=== PATIENT | male | born 1975 | race Caucasian/White ===

== ENCOUNTER 2021-05-26 13:44 | Emergency (ER) | payer OTHER ==
[2021-05-26 14:02] VITALS: BP 162/99; PULSE 73; TEMP 97.9; BMI 31.7
[2021-05-26] MEDS ORDERED: DIPHTH,PERTUSS(ACELL),TET 0.5 ML DISP.SYRIN IM ONE ×2 (15:03→15:05)
== END 2021-05-26 15:21 | disposition home or self-care (01) ==
LOC: JERFT 13:44
PROC: 3E0234Z Introduction of Serum, Toxoid and Vaccine into Muscle, Percutaneous Approach (ICD-10-PCS; principal; 2021-05-26)
PROC: 0HQGXZZ Repair Left Hand Skin, External Approach (ICD-10-PCS; 2021-05-26)
DX: S61.512A Laceration without foreign body of left wrist, initial encounter (principal); W26.8XXA Contact with other sharp object(s), not elsewhere classified, initial encounter
CPT/HCPCS: 12002-25; 90471; 90715; 99284-25

== ENCOUNTER 2021-06-03 12:28 | Emergency (ER) | payer OTHER ==
[2021-06-03 12:41] VITALS: BP 137/78; PULSE 98; TEMP 98.7; BMI 28.5
== END 2021-06-03 13:29 | disposition home or self-care (01) ==
LOC: JERFT 12:28 → JER 12:28 → JERFT 13:29
DX: Z48.02 Encounter for removal of sutures (principal)
CPT/HCPCS: 99281-25

== ENCOUNTER 2023-08-22 08:23 | Emergency (ER) | payer OTHER ==
[2023-08-22 08:29] VITALS: BP 149/81; PULSE 107; RESP 18; TEMP 97.8; BMI 33.3
[2023-08-22] MEDS: SODIUM CHLORIDE 0.9% 1000 ML INFUS.BAG IV ONE (10:05)
[2023-08-22 10:13] LABS: BASO % 0.4 % (0-2.0); EOS % 0.2 % (0-4.5); HEMATOCRIT 42.6 % (35.4-49); HEMOGLOBIN 14.9 GM/dL (11.7-16.9); LYMPH % 22.7 % (8-40); MCH 33.6 pg (25.7-33.7); MCHC 34.9 g/dl (32.0-35.9); MEAN CELL VOLUME 96.5 fl (80-96); MEAN PLT VOLUME 7.5 fl (7.5-11.1); MONO % 5.7 % (3.8-10.2); PLATELET COUNT 190 10^3/uL (134-434); RBC 4.42 M/mm3 (4.00-5.60); RDW 13.1 % (11.9-15.9); WHITE BLOOD COUNT 5.9 K/mm3 (4.0-10.0)
[2023-08-22 10:17] LABS: PH,URINE 8.5 (5.0-8.0); URINE APPEARANCE CLEAR; URINE BILIRUBIN NEGATIVE (NEGATIVE); URINE COLOR YELLOW; URINE GLUCOSE (UA) NEGATIVE (NEGATIVE); URINE KETONE NEGATIVE (NEGATIVE); URINE LEUK ESTERASE NEGATIVE (NEGATIVE); URINE NITRITE NEGATIVE (NEGATIVE); URINE PROTEIN NEGATIVE (NEGATIVE); URINE UROBILINOGEN 0.2 mg/dL (0.2-1.0)
[2023-08-22 10:29] LABS: POTASSIUM 3.9 mmol/L (3.5-5.1)
[2023-08-22 10:31] LABS: CALCIUM 8.7 mg/dL (8.5-10.1)
[2023-08-22 10:32] LABS: ALBUMIN 4.1 g/dl (3.4-5.0); BLOOD UREA NITROGEN 11.1 mg/dL (7-18)
[2023-08-22 10:35] LABS: CREATININE 0.9 mg/dL (0.55-1.3)
[2023-08-22 10:37] LABS: BILIRUBIN,TOTAL 0.4 mg/dL (0.2-1); TOT PROT 7.1 g/dl (6.4-8.2)
[2023-08-22] MEDS ORDERED: ACETAMINOPHEN 325 MG TABLET (FP) ONE (10:58)
[2023-08-22] MEDS: ACETAMINOPHEN 500 MG TABLET (FP) PO ONE (11:02)
== END 2023-08-22 13:45 | disposition home or self-care (01) ==
LOC: JER 08:23
DX: R10.30 Lower abdominal pain, unspecified (principal); K56.41 Fecal impaction; K92.1 Melena; R10.2 Pelvic and perineal pain
CPT/HCPCS: 36415; 74177-TC; 76870-TC; 80053; 81003; 82272; 85025; 87086; 99285-25

== ENCOUNTER 2024-12-05 16:20 | Emergency (ER) | payer OTHER ==
[2024-12-05 16:33] VITALS: BP 129/80; PULSE 108; RESP 20; TEMP 99.1; BMI 41.0
[2024-12-05] MEDS ORDERED: KETOROLAC TROMETHAMINE 30 MG/1 ML VIAL ONE (17:17)
[2024-12-05] MEDS ORDERED: LIDOCAINE 4% PATCH TP ONE (17:17)
[2024-12-05] MEDS: LIDOCAINE 4% PATCH TP ONE (17:22)
[2024-12-05] MEDS: KETOROLAC TROMETHAMINE 30 MG/1 ML VIAL IM ONE (17:22)
[2024-12-05 17:37] LABS: URINE APPEARANCE CLEAR; URINE BILIRUBIN NEGATIVE (NEGATIVE); URINE COLOR YELLOW; URINE GLUCOSE (UA) NEGATIVE (NEGATIVE); URINE KETONE TRACE (NEGATIVE); URINE LEUK ESTERASE NEGATIVE (NEGATIVE); URINE NITRITE NEGATIVE (NEGATIVE); URINE PROTEIN NEGATIVE (NEGATIVE); URINE UROBILINOGEN 0.2 mg/dL (0.2-1.0)
== END 2024-12-05 19:56 | disposition home or self-care (01) ==
LOC: JER 16:20
PROC: 3E0233Z Introduction of Anti-inflammatory into Muscle, Percutaneous Approach (ICD-10-PCS; principal; 2024-12-05)
DX: M54.41 Lumbago with sciatica, right side (principal)
CPT/HCPCS: 72131-TC; 81003; 87086; 96372; 99285-25